=== PATIENT | female | born 1990 | race Caucasian/White ===

== ENCOUNTER 2020-04-25 12:41 | Emergency (ER) | payer BC, SELFPAY ==
[2020-04-25 13:05] VITALS: BP 134/69; PULSE 88; RESP 16; TEMP 37.1; O2SAT 99
--- NOTE | 2020-04-25 13:17 | ED.EYEPROB ---
HPI - Eye Problem General Chief complaint: Eye Problems Stated complaint: Left eye pain Time Seen by Provider: 04/25/20 13:05 Source: patient and RN notes reviewed Mode of arrival: ambulatory Limitations: no limitations History of Present Illness HPI Narrative: 30-year-old female presents with concern for left eye pain. Reports just prior to arrival she was giving her son a hog, he was wearing a baseball cap. When he turned away his baseball cap hit her eye. She reports eye pain, eye watering. Reports blurred vision due to eye watering. chief complaint: eye pain Related Data Allergies Allergy/AdvReac Type Severity Reaction Status Date / Time No Known Allergies Allergy Verified 04/25/20 12:50 Review of Systems Review of Systems: Narrative: CONSTITUTIONAL: Denies malaise, chills, sweats, or fever. EYES: Reports left eye blurry vision, watering, left eye pain ENT: Denies rhinorrhea, congestion, sinus pain, otalgia or sore throat. NEUROLOGIC: Denies headache. All systems reviewed & are unremarkable except as noted in HPI and below PMFSH Social History Social History Gender identity (if verbalized by the patient): Female Comments At time of signature, agree with nursing past medical, surgical, social and family history. There is no relevant family history pertinent to the presenting complaint Exam Narrative: Exam Narrative: GENERAL: Well-appearing, well-nourished, and in no acute distress. HEAD: Normocephalic, atraumatic. EYES: Right eye PERRLA, conjunctivae clear, and EOMI. left eye sclera injected, watery drainage, corneal abrasion noted, centimeters procedure note ENT: Nares clear. Mucous membranes moist. NECK: Supple. CHEST: No respiratory distress. Speaks in full sentences. HEART: Regular rate and rhythm. SKIN: Warm, dry, no rash. NEURO: Alert and oriented x3. PSYCH: Normal mood and affect Course Course Emergency Course: Patient is aware of diagnosis, understands and agrees to treatment plan. Anticipatory guidance given. Patient agrees to follow-up as directed and is aware of reasons to seek care at the emergency department. Portions of this record may have been created with voice recognition software Vital Signs Vital signs: Vital Signs Temperature 98.8 F 04/25/20 13:05 Pulse Rate 88 04/25/20 13:05 Respiratory Rate 16 04/25/20 13:05 Blood Pressure 134/69 04/25/20 13:05 Pulse Oximetry 99 04/25/20 13:05 Temperature 98.8 F 04/25/20 13:05 Pulse Rate 88 04/25/20 13:05 Respiratory Rate 16 04/25/20 13:05 Blood Pressure 134/69 04/25/20 13:05 Pulse Oximetry 99 04/25/20 13:05 Reviewed. Patient has been instructed to follow up with her primary care provider within the next week regarding her elevated blood pressure today. Procedures Other Procedure Procedure 1: Other Procedure: Tetracaine 1 gtt instilled in left eye, fluorescein stain applied. Large corneal abrasion with small corneal flap noted upon segovia lamp exam at approximately 1 o'clock in relation to the pupil. Eye washed with NS. No foreign bodies or Edilson sign noted. MDM - Eye Problem MDM Narrative Medical decision making narrative: Consideration of the following conditions may be warranted for the presenting problem, they are not final diagnoses: Bacterial conjunctivitis, allergic conjunctivitis, viral conjunctivitis, foreign body, blepharitis, chalazion, hordeolum, corneal abrasion. Exam findings show no acute concerns or changes; patient is non-toxic appearing and is in no distress. Patient is appropriate for outpatient treatment and follow-up. Critical Care Time Critical Care Time Critical Care Time: No Discharge Plan Discharge Clinical Impression: Corneal abrasion Qualifiers: Encounter type: initial encounter Laterality: left Qualified Code(s): S05.02XA - Injury of conjunctiva and corneal abrasion without foreign body, left eye, initial encounter Patient Disposition: Home, Self-Ca
== END 2020-04-25 13:34 | disposition home or self-care (01) ==
PROVIDERS: Emergency Provider Nurse Practitioner
DX: S05.02XA Injury of conjunctiva and corneal abrasion without foreign body, left eye, initial encounter (principal); R03.0 Elevated blood-pressure reading, without diagnosis of hypertension; W22.8XXA Striking against or struck by other objects, initial encounter
CPT/HCPCS: 99203; A9270; G0463